=== PATIENT | male | born 1990 | race Caucasian/White ===

== ENCOUNTER 2016-06-26 10:27 | Emergency (ER) | payer BC, OTHER ==
[~2016-06-26] VITALS: Ht 180.3 cm; Wt 81.6 kg
[~2016-06-26 10:27] MED LIST: IBUP800T24 PO
[2016-06-26 10:51] VITALS: BP 155/105
== END 2016-06-26 14:48 | disposition home or self-care (01) ==
LOC: ER 10:27
DX: S92.215A Nondisplaced fracture of cuboid bone of left foot, initial encounter for closed fracture (principal); F17.210 Nicotine dependence, cigarettes, uncomplicated; W19.XXXA Unspecified fall, initial encounter; Y93.64 Activity, baseball; Y99.8 Other external cause status; Y92.89 Other specified places as the place of occurrence of the external cause
CPT/HCPCS: 29515; 73630